=== PATIENT | male | born 1985 | race Caucasian/White ===

== ENCOUNTER 2017-06-03 12:26 | Emergency (ER) | payer OTHER ==
[2017-06-03 12:33] VITALS: BP 170/99
--- NOTE | 2017-06-03 12:53 | ER Document Report ---
ED Medical Screen (RME) - General Chief Complaint: Chest Pain Stated Complaint: CHEST PAIN Time Seen by Provider: 06/03/17 12:51 Notes: Patient states that he has had several months of intermittent chest pain. He states the current episode is been on and off for the last 2 days. It is in the central chest and radiates to the left chest on the left shoulder. He denies any previous history of heart disease. He states he does not have any family history of heart disease. He has not a smoker. He has had no vomiting or shortness of breath. TRAVEL OUTSIDE OF THE [place] IN LAST 30 DAYS: No - Related Data Allergies/Adverse Reactions: No Known Allergies Allergy (Unverified 06/03/17 12:33) Past Medical History Renal/ Medical History: Denies: Hx Peritoneal Dialysis Physical Exam - Vital signs Vitals: Temp Pulse Resp BP Pulse Ox 99.0 F 77 20 170/99 H 100 06/03/17 12:31 06/03/17 12:31 06/03/17 12:31 06/03/17 12:31 06/03/17 12:31 Course - Vital Signs Vital signs: Temp Pulse Resp BP Pulse Ox 99.0 F 77 20 170/99 H 100 06/03/17 12:31 06/03/17 12:31 06/03/17 12:31 06/03/17 12:31 06/03/17 12:31
[2017-06-03 13:09] LABS: ABSOLUTE BASOPHILS # (AUTO) 0.1 10^3/uL (0.0-0.2); ABSOLUTE EOSINOPHILS # (AUTO) 0.2 10^3/uL (0.0-0.6); ABSOLUTE LYMPHOCYTES (AUTO) 1.9 10^3/uL (0.5-4.7); ABSOLUTE MONOCYTES (AUTO) 0.9 10^3/uL (0.1-1.4); ABSOLUTE NEUT (AUTO) 9.4 10^3/uL (1.7-8.2); BASOPHILS % (AUTO) 0.5 % (0-2); EOSINOPHILS % (AUTO) 1.9 % (0-6); HEMATOCRIT 41.4 % (37.9-51.0); HEMOGLOBIN 14.5 g/dL (13.5-17.0); HGB HCT DIFFERENCE 2.1; MEAN CORPUSCULAR HEMOGLOBIN 28.3 pg (27.0-33.4); MEAN CORPUSCULAR HGB CONC 34.9 g/dL (32.0-36.0); MEAN CORPUSCULAR VOLUME 81 fl (80-97); MONOCYTES % (AUTO) 6.9 % (3-13); RED BLOOD COUNT 5.11 10^6/uL (4.35-5.55); RED CELL DISTRIBUTION WIDTH 14.2 % (11.5-14.0); SEGMENTED NEUTROPHILS % (AUTO) 75.7 % (42-78); WHITE BLOOD COUNT 12.4 10^3/uL (4.0-10.5)
[2017-06-03 13:33] LABS: ALANINE AMINOTRANSFERASE 45 U/L (21-72); ALBUMIN 4.2 g/dL (3.5-5.0); ALKALINE PHOSPHATASE 95 U/L (38-126); ANION GAP 11 (5-19); ASPARTATE AMINO TRANSFERASE 22 U/L (17-59); BILIRUBIN,DIRECT 0.3 mg/dL (0.0-0.4); BILIRUBIN,TOTAL 0.8 mg/dL (0.2-1.3); BLOOD UREA NITROGEN 12 mg/dL (7-20); CALCIUM 9.3 mg/dL (8.4-10.2); CARBON DIOXIDE 30 mmol/L (22-30); CHLORIDE 100 mmol/L (98-107); CREATININE RESULT 0.83 mg/dL (0.52-1.25); GLUCOSE 101 mg/dL (75-110); POTASSIUM 4.3 mmol/L (3.6-5.0); SODIUM 140.8 mmol/L (137-145); TOTAL PROTEIN 7.6 g/dL (6.3-8.2)
--- NOTE | 2017-06-03 13:41 | EKG REPORT ---
SEVERITY:- NORMAL ECG - SINUS RHYTHM : Confirmed by: Jose A Rucker MD 03-Jun-2017 13:41:06
[2017-06-03 14:25] LABS: ADD ON TESTING BLD IN LAB ACKNOWLEDGE
[2017-06-03 14:33] LABS: CREATINE KINASE 83 U/L (55-170)
--- NOTE | 2017-06-03 14:38 | ER Document Report ---
ED General - General TRAVEL OUTSIDE OF THE [place] IN LAST 30 DAYS: No - HPI Onset: Other - 6 months Associated symptoms: Other - see above <REBEKA MCKINNON - Last Filed: 06/03/17 14:35> <CRESCENCIO SANCHEZ - Last Filed: 06/03/17 17:35> - General Chief Complaint: Chest Pain Stated Complaint: CHEST PAIN Time Seen by Provider: 06/03/17 12:51 Notes: Patient is a 31 year old male who presents to the ED with complaints of substernal reflux and burping for the past 6 months. Patient has taken over the counter Zantac a couple months ago with some relief and still takes it intermittently. Patient has not done anything to modify his diet. Patient also complains of pain in his left scapular region. (REBEKA MCKINNON) - Related Data Allergies/Adverse Reactions: No Known Allergies Allergy (Unverified 06/03/17 12:33) Past Medical History - General Information source: Patient - Social History Smoking Status: Never Smoker Chew tobacco use (# tins/day): No Frequency of alcohol use: None Drug Abuse: None Family History: Reviewed & Not Pertinent Renal/ Medical History: Denies: Hx Peritoneal Dialysis GI Medical History: Reports: Hx Gastroesophageal Reflux Disease Surgical Hx: Negative - Immunizations Hx Diphtheria, Pertussis, Tetanus Vaccination: No <REBEKA MCKINNON - Last Filed: 06/03/17 14:35> Review of Systems - Review of Systems Constitutional: No symptoms reported EENT: No symptoms reported Cardiovascular: No symptoms reported Respiratory: No symptoms reported Gastrointestinal: See HPI, Other - substernal reflux and burping Genitourinary: No symptoms reported Male Genitourinary: No symptoms reported Musculoskeletal: See HPI, Other - left scapular region pain Skin: No symptoms reported Hematologic/Lymphatic: No symptoms reported Neurological/Psychological: No symptoms reported <REBEKA MCKINNON - Last Filed: 06/03/17 14:35> Physical Exam <REBEKA MCKINNON - Last Filed: 06/03/17 14:35> <CRESCENCIO SANCHEZ - Last Filed: 06/03/17 17:35> - Vital signs Vitals: Temp Pulse Resp BP Pulse Ox 99.0 F 77 20 170/99 H 100 06/03/17 12:31 06/03/17 12:31 06/03/17 12:31 06/03/17 12:31 06/03/17 12:31 - Notes Notes: GENERAL: Well-appearing, well nourished and in no acute distress. HEAD: Normocephalic, atraumatic. Eyes: Pupils equal, round, and reactive to light. Extraocular movements intact. ENT: Oral mucosa moist, tongue midline. NECK: Full range of motion. Supple without lymphadenopathy. LUNGS: Clear to auscultation bilaterally, no wheezes, rales, or rhonchi. No respiratory distress. HEART: Regular rate and rhythm. No murmurs, gallops, or rubs. ABDOMEN: Soft, non-tender. No guarding or rebound. Non-distended. Bowel sounds present in all 4 quadrants. EXTREMITIES: Normal ROM. No Edema. Left medial scapular muscle tender to palpation. NEUROLOGICAL: Alert and oriented x3. Normal speech. No focal neurological deficits. PSYCH: Normal affect, normal mood. SKIN: Warm, dry, normal turgor. No rashes or lesions noted. (REBEKA MCKINNON) Course - Laboratory Result Diagrams: 06/03/17 13:00 06/03/17 13:00 <REBEKA MCKINNON - Last Filed: 06/03/17 14:35> - Laboratory Result Diagrams: 06/03/17 13:00 06/03/17 13:00 - Diagnostic Test Radiology reviewed: Reports reviewed - Right upper quadrant ultrasound is read as grossly normal, see radiologist report. - EKG Interpretation by [facility] EKG shows normal: Sinus rhythm, Kirk, Intervals, QRS Complexes, ST-T Waves Rate: Normal - 76 Rhythm: NSR <CRESCENCIO SANCHEZ - Last Filed: 06/03/17 17:35> - Vital Signs Vital signs: Temp Pulse Resp BP Pulse Ox 99.0 F 77 20 170/99 H 100 06/03/17 12:31 06/03/17 12:31 06/03/17 12:06/03/17 12:31 06/03/17 12:31 - Laboratory Laboratory results interpreted by me: 06/03/17 13:00 WBC 12.4 H RDW 14.2 H Absolute Neutrophils 9.4 H Discharge <REBEKA MCKINNON - Last Filed: 07/31/17 14:35> <CRESCENCIO SANCHEZ - Last Filed: 06/03/17 17:35> - Discharge Clinical Impression: GERD (gastroesophageal reflux disease) Qualifiers: Esophagitis presence: esophagitis presence not specified Qualified Code(s): K21.9 - Gastro-esophageal reflux disease without esophagitis Condition: Stable Disposition: HOME, SELF-CARE Additional Instructions: Reflux Disease (GERD): Gastro-Esophageal Reflux Disease (GERD) is caused by stomach acid refluxing back up into the esophagus. The valve at the end of the esophagus may be weak. This is common in persons with a hiatal hernia. GERD symptoms can include indigestion, chest pain, heartburn, or food "sticking." Certain foods, alcohol, and aspirin can make GERD worse. Treatment depends on the severity. Usually, antacids or acid-suppressing medicines are used. When the esophagus is acutely inflamed, the physician will often prescribe membrane-protective drugs such as Carafate. Some patients benefit from medication such as Reglan that tightens the valve at the top of the stomach. Avoid those foods that bring on your symptoms. For many people, these foods are coffee, chocolate, onions, garlic, and carbonated drinks. Don't use alcohol, aspirin, caffeine, or tobacco. Don't eat late at night -- within 4 hours of bedtime. Don't over-eat. If necessary, elevate the head of your bed about 4 inches so that stomach acid will not roll up into your esophagus. Call the doctor if you develop severe chest pain, inability to swallow fluids, fever, or worsening symptoms. TAKE PRILOSEC OTC ONCE DAILY. TAKE ANTI-ACIDS BETWEEN MEALS AND AT BEDTIME. AVOID SPICY AND ACIDIC FOODS AND LIQUIDS. AVOID ALCOHOLIC BEVERAGES. AVOID EATING A FEW HOURS BEFORE GOING TO BED. ELEVATE THE HEAD OF THE BED. FOLLOWUP WITH A LOCAL PRIMARY CARE PROVIDER IF NOT IMPROVING. RETURN TO THE EMERGENCY ROOM IF ANY NEW OR WORSENING SYMPTOMS. Yesenia Attestation: 06/03/17 15:23 I personally performed the services described in the documentation, reviewed and edited the documentation which was dictated to the scribe in my presence, and it accurately records my words and actions. (CRESCENCIO SANCHEZ) Yesenia Documentation - Scribe Written by Yesenia:: yesenia Ruiz, 06/03/2017, 1438 acting as scribe for :: Arcelia <REBEKA MCKINNON - Last Filed: 06/03/17 14:35>
--- NOTE | 2017-06-03 17:22 | RADIOLOGY REPORT (SQ) ---
EXAM DESCRIPTION: U/S ABDOMEN LIMITED W/O DOP COMPLETED DATE/TIME: 06/03/2017 5:09 pm REASON FOR STUDY: GERD x 6 months COMPARISON: None. TECHNIQUE: Dynamic and static grayscale images acquired of the right upper quadrant and recorded on PACS. Additional selected color Doppler and spectral images recorded. LIMITATIONS: Study markedly limited due to acoustical interference from fat and from air in the jen l. FINDINGS: PANCREAS: Parts of the pancreas poorly seen secondary to acoustical interference from fat or from air in the bowel. LIVER: Echotexture is coarse with increased echogenicity consistent with fatty infiltration. No mass es. LIVER VASCULATURE: Normal directional flow of the main portal vein and hepatic veins. GALLBLADDER: No stones. Normal wall thickness. No pericholecystic fluid. ULTRASOUND-DETECTED PEDRAZA'S SIGN: Negative. INTRAHEPATIC DUCTS AND COMMON DUCT: Unable to visualize the extrahepatic bile ducts. No visualized i ntrahepatic biliary dilation. INFERIOR VENA CAVA: Normal flow. AORTA: No aneurysm. RIGHT KIDNEY: Normal size. Normal echogenicity. No solid or suspicious masses. No hydronephrosis. No calcifications. PERITONEAL CAVITY AND RIGHT PLEURAL SPACE: No ascites or effusions. OTHER: No other significant finding. IMPRESSION: LIMITED STUDY. FATTY LIVER. PANCREAS PARTIALLY OBSCURED. OTHERWISE NORMAL RIGHT UPPER Q UADRANT ULTRASOUND. TECHNICAL DOCUMENTATION: JOB ID: [id number] [employer]- All Rights Reserved
== END 2017-06-03 18:32 | disposition home or self-care (01) ==
LOC: ER 12:26
DX: K21.9 Gastro-esophageal reflux disease without esophagitis (principal); R07.9 Chest pain, unspecified; M25.512 Pain in left shoulder
CPT/HCPCS: 36415; 76705; 80053; 82550; 84484; 85025; 93005; 93010; 99285

== ENCOUNTER 2017-12-15 04:39 | Emergency (ER) | payer OTHER ==
[2017-12-15 04:45] VITALS: BP 150/95
--- NOTE | 2017-12-15 05:21 | ER Document Report ---
HPI - HPI Patient complains to provider of: shoulder and back pain Pain Level: 4 Context: Patient is a 32-year-old male comes emergency department for chief complaint of tightness, soreness, and pain in his right upper back/shoulder extending down to his mid back. 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 He denies any impact injury, difficulty breathing, numbness, or fever. He denies any daily medications or medical problems. He states he took over-the- counter anti-inflammatories and they did not help. Past Medical History - General Information source: Patient - Social History Smoking Status: Never Smoker Frequency of alcohol use: None Drug Abuse: None Lives with: Family Family History: Reviewed & Not Pertinent Renal/ Medical History: Denies: Hx Peritoneal Dialysis GI Medical History: Reports: Hx Gastroesophageal Reflux Disease Surgical Hx: Negative - Immunizations Hx Diphtheria, Pertussis, Tetanus Vaccination: No Vertical Provider Document - CONSTITUTIONAL General Appearance: Obese, Other - Patient has obvious discomfort with movement , otherwise he is well-appearing - INFECTION CONTROL TRAVEL OUTSIDE OF THE [place] IN LAST 30 DAYS: No - HEENT HEENT: Atraumatic, Normal ENT Exam, Normocephalic - NECK Neck: Normal Inspection - RESPIRATORY Respiratory: Breath Sounds Normal, No Respiratory Distress, Chest Non-Tender O2 Sat by Pulse Oximetry: 98 - CARDIOVASCULAR Cardiovascular: Regular Rate, Regular Rhythm - GI/ABDOMEN Gastrointestinal: Abdomen Soft, Abdomen Non-Tender - BACK Back: negative: Normal Inspection - Patient is very tender along the right scapula border and along the right upper paraspinal thoracic area, rigid muscles over these areas. No midline tenderness. Normal patient observer, sensation, no saddle anesthesia, normal distal neurovascular exam. Course - Re-evaluation Re-evalutation: On exam patient appears to have muscular strain and spasm with rigid muscles. Very low suspicion of pneumothorax or other intrathoracic abnormality, clear lungs, unremarkable vital signs. No neurological deficits or signs of infection suggesting concerning back abnormality either. Treating for muscle spasm, discussed recommendations, follow-up, return precautions, patient states understanding and agreement. - Vital Signs Vital signs: Temp Pulse Resp BP Pulse Ox 98.6 F 91 18 150/95 H 98 12/15/17 04:44 12/15/17 04:44 12/15/17 04:44 12/15/17 04:44 02/11/18 04:44 Discharge - Discharge Clinical Impression: Muscle strain Right-sided back pain Qualifiers: Back pain location: back pain in unspecified location Chronicity: acute Qualified Code(s): M54.9 - Dorsalgia, unspecified Condition: Stable Disposition: HOME, SELF-CARE Additional Instructions: Examination is consistent with muscle injury, strain, spasm. Take the Valium as prescribed for the first 1-2 days, afterwards began and take the Robaxin muscle relaxer if needed. Apply heat to the areas, do gentle stretches, avoid lifting or twisting, and rest. Follow-up with primary care. Return for any concerning or worsening symptoms including numbness, severe pain , fever, or any other concerning symptoms. Prescriptions: Diazepam [Valium 5 mg Tablet] 1 - 2 tab PO TID PRN #6 tablet PRN Reason: Methocarbamol [Robaxin 750 mg Tablet] 750 mg PO Q6 #20 tablet Forms: Return to Work
== END 2017-12-15 05:20 | disposition home or self-care (01) ==
LOC: ER 04:39
DX: T14.8XXA Other injury of unspecified body region, initial encounter (principal); X58.XXXA Exposure to other specified factors, initial encounter; M25.511 Pain in right shoulder; M54.89 Other dorsalgia; E66.9 Obesity, unspecified; Z68.43 Body mass index [BMI] 50.0-59.9, adult
CPT/HCPCS: 99283

== ENCOUNTER 2017-12-19 01:06 | Emergency (ER) | payer OTHER ==
--- NOTE | 2017-12-19 01:51 | ER Document Report ---
ED General - General Chief Complaint: Productive Cough Stated Complaint: COUGHING UP BLOOD Time Seen by Provider: 12/19/17 01:44 Mode of Arrival: Ambulatory Information source: Patient Notes: 32yo male c/o cough with bright red blood x 1 day. Denies clots of blood and sputum production. Patient reports that his chest feels warm to touch. Denies FIERRO , dizziness, SOB, and abd pain. Denies smoking, alcohol, and illicit drug use. TRAVEL OUTSIDE OF THE [place] IN LAST 30 DAYS: No - HPI Onset: Other - Patient was coughing for 1 week blood started today patient denies any DVT PE risk factors Onset/Duration: Sudden Quality of pain: Achy Severity: Mild Pain Level: 1 Associated symptoms: Other Exacerbated by: Coughing Relieved by: Denies Similar symptoms previously: No Recently seen / treated by doctor: No - Related Data Allergies/Adverse Reactions: No Known Allergies Allergy (Unverified 06/03/17 12:33) Past Medical History - Social History Smoking Status: Never Smoker Cigarette use (# per day): No Chew tobacco use (# tins/day): No Smoking Education Provided: No Frequency of alcohol use: None Drug Abuse: None Family History: Reviewed & Not Pertinent Patient has suicidal ideation: No Patient has homicidal ideation: No Renal/ Medical History: Denies: Hx Peritoneal Dialysis GI Medical History: Reports: Hx Gastroesophageal Reflux Disease - Immunizations Hx Diphtheria, Pertussis, Tetanus Vaccination: No Review of Systems - Review of Systems Notes: REVIEW OF SYSTEMS: CONSTITUTIONAL : Denies fever, chills, or sweats. Denies recent illness. EENT: Denies eye, ear, throat, or mouth pain or symptoms. Denies nasal or sinus congestion or discharge. Denies throat, tongue, or mouth swelling or difficulty swallowing. CARDIOVASCULAR: Denies chest pain. Denies palpitations or racing or irregular heart beat. Denies ankle edema. RESPIRATORY: Admits to cough specks of blood GASTROINTESTINAL: Denies abdominal pain or distention. Denies nausea, vomiting , or diarrhea. Denies blood in vomitus, stools, or per rectum. Denies black, tarry stools. Denies constipation. GENITOURINARY: Denies difficulty urinating, painful urination, burning, frequency, blood in urine, or discharge. MUSCULOSKELETAL: Denies back or neck pain or stiffness. Denies joint pain or swelling. SKIN: Denies rash, lesions or sores. HEMATOLOGIC : Denies easy bruising or bleeding. LYMPHATIC: Denies swollen, enlarged glands. NEUROLOGICAL: Denies confusion or altered mental status. Denies passing out or loss of consciousness. Denies dizziness or lightheadedness. Denies headache. Denies weakness or paralysis or loss of use of either side. Denies problems with gait or speech. Denies sensory loss, numbness, or tingling. Denies seizures. PSYCHIATRIC: Denies anxiety or stress. Denies depression, suicidal ideation, or homicidal ideation. ALL OTHER SYSTEMS REVIEWED AND NEGATIVE. Dictation was performed using [employer] voice recognition software PHYSICAL EXAMINATION: GENERAL: Obese male HEAD: Atraumatic, normocephalic. EYES: Pupils equal round and reactive to light, extraocular movements intact, sclera anicteric, conjunctiva are normal. ENT: Nares patent, oropharynx clear without exudates. Moist mucous membranes. NECK: Normal range of motion, supple without lymphadenopathy LUNGS: Breath sounds clear to auscultation bilaterally and equal. No wheezes rales or rhonchi. HEART: Tachycardic ABDOMEN: Soft, nontender, nondistended abdomen. No guarding, no rebound. No masses appreciated. Musculoskeletal: Normal range of motion, no pitting or edema. No cyanosis. NEUROLOGICAL: Cranial nerves grossly intact. Normal speech, normal gait. Normal sensory, motor exams PSYCH: Normal mood, normal affect. SKIN: Warm, Dry, normal turgor, no rashes or lesions noted. Physical Exam - Vital signs Vitals: Temp Pulse Resp BP Pulse Ox 98.2 F 102 H 20 169/94 H 96 12/19/17 01:11 12/19/17 01:11 12/19/17 01:11 12/19/17 01:11 12/19/17 01:11 Course - Re-evaluation Re-evalutation: 12/19/17 03:54 This is a 32-year-old male no previous DVT PE or risk factors for such who presents noted to be slightly tachycardic with complaints of coughing blood, d- dimer was elevated, CTA has been ordered 12/19/17 05:53 cta after delays ntes a left lower lobe pneumonia, will start patient on levaquin otherwise he is well appearing in no distress After performing a Medical Screening Examination, I estimate there is LOW risk for ACUTE CORONARY SYNDROME, PULMONARY EMBOLI, RESPIRATORY FAILURE, SEPSIS OR MENINGITIS, thus I consider the discharge disposition reasonable. I have reevaluated this patient multiple times and no significant life threatening changes are noted. The patient and I have discussed the diagnosis and risks, and we agree with discharging home with close follow-up. We also discussed returning to the Emergency Department immediately if new or worsening symptoms occur. We have discussed the symptoms which are most concerning (e.g., changing or worsening pain, trouble swallowing or breathing, neck stiffness, fever) that necessitate immediate return. - Vital Signs Vital signs: Temp Pulse Resp BP Pulse Ox 98.2 F 102 H 20 169/94 H 96 12/19/17 01:11 12/19/17 01:11 12/19/17 01:11 12/19/17 01:11 12/19/17 01:11 - Laboratory Result Diagrams: 12/19/17 02:25 12/19/17 02:25 Laboratory results interpreted by me: 12/19/17 12/19/17 12/19/17 02:25 02:25 02:25 WBC 11.0 H Hgb 12.2 L Hct 35.7 L D-Dimer 3.07 H Glucose 124 H Direct Bilirubin 0.5 H ALT 80 H - Diagnostic Test Radiology reviewed: Image reviewed, Reports reviewed Discharge - Discharge Clinical Impression: Left lower lobe pneumonia Qualifiers: Pneumonia type: due to unspecified organism Qualified Code(s): J18.1 - Lobar pneumonia, unspecified organism HTN (hypertension) Qualifiers: Hypertension type: essential hypertension Qualified Code(s): I10 - Essential ( primary) hypertension Condition: Stable Disposition: HOME, SELF-CARE Instructions: Pneumonia ([facility]) Additional Instructions: Follow up with your physician tomorrow for further care or return to the ED IMMEDIATELY if symptoms worsen or new concerns occur. If you cannot afford to follow up with your primary care physician a list of low cost clinics have been provided at the end of your discharge papers as well. Prescriptions: Levofloxacin [Levaquin 750 mg Tablet] 750 mg PO DAILY #4 tablet
--- NOTE | 2017-12-19 02:49 | RADIOLOGY REPORT (SQ) ---
EXAM DESCRIPTION: CHEST PA/LAT CLINICAL HISTORY: 32 years, Male, cough, blood tinged COMPARISON: None. NUMBER OF VIEWS: 2 LIMITATIONS: None. FINDINGS: Moderate lung volume. Clear parenchyma. Normal cardiac silhouette. Minimal anterior vertebral wedging at the thoracolumbar junction. IMPRESSION: Moderate lung volume.
[2017-12-19 03:28] LABS: ABSOLUTE BASOPHILS # (AUTO) 0.1 10^3/uL (0.0-0.2); ABSOLUTE EOSINOPHILS # (AUTO) 0.5 10^3/uL (0.0-0.6); ABSOLUTE LYMPHOCYTES (AUTO) 1.5 10^3/uL (0.5-4.7); ABSOLUTE MONOCYTES (AUTO) 0.7 10^3/uL (0.1-1.4); ABSOLUTE NEUT (AUTO) 8.1 10^3/uL (1.7-8.2); BASOPHILS % (AUTO) 0.5 % (0-2); EOSINOPHILS % (AUTO) 4.9 % (0-6); HEMATOCRIT 35.7 % (37.9-51.0); HEMOGLOBIN 12.2 g/dL (13.5-17.0); LYMPHOCYTES % (AUTO) 14.1 % (13-45); MEAN CORPUSCULAR HEMOGLOBIN 27.4 pg (27.0-33.4); MEAN CORPUSCULAR HGB CONC 34.1 g/dL (32.0-36.0); MEAN CORPUSCULAR VOLUME 80 fl (80-97); MONOCYTES % (AUTO) 6.6 % (3-13); PLATELET COUNT 344 10^3/uL (150-450); RED BLOOD COUNT 4.45 10^6/uL (4.35-5.55); RED CELL DISTRIBUTION WIDTH 13.5 % (11.5-14.0); SEGMENTED NEUTROPHILS % (AUTO) 73.9 % (42-78); TOTAL CELLS COUNTED % (AUTO) 100 %
[2017-12-19 03:34] LABS: ALANINE AMINOTRANSFERASE 80 U/L (21-72); ALBUMIN 3.5 g/dL (3.5-5.0); ALKALINE PHOSPHATASE 96 U/L (38-126); ANION GAP 11 (5-19); ASPARTATE AMINO TRANSFERASE 29 U/L (17-59); BILIRUBIN,DIRECT 0.5 mg/dL (0.0-0.4); BILIRUBIN,TOTAL 0.7 mg/dL (0.2-1.3); BLOOD UREA NITROGEN 10 mg/dL (7-20); CALCIUM 9.2 mg/dL (8.4-10.2); CARBON DIOXIDE 27 mmol/L (22-30); CHLORIDE 102 mmol/L (98-107); GLUCOSE 124 mg/dL (75-110); POTASSIUM 3.7 mmol/L (3.6-5.0); SODIUM 139.6 mmol/L (137-145); TOTAL PROTEIN 7.1 g/dL (6.3-8.2)
--- NOTE | 2017-12-19 05:52 | RADIOLOGY REPORT (SQ) ---
EXAM DESCRIPTION: CTA CHEST CLINICAL HISTORY: 32 years Male, coughing blood, _+ d dimer COMPARISON: CR, same day. TECHNIQUE: 200 cc Isovue IV contrast after injection. Coronal and sagittal reformat. This exam was performed according to our departmental dose-optimization program, which includes automated exposure control, adjustment of the mA and/or kV according to patient size and/or use of iterative reconstruction technique. Limitation: As below. FINDINGS: Small-moderate right basilar consolidate. Small right pleural effusion. No pulmonary embolus. No right ventricular strain. Suboptimal pulmonary arterial enhancement measures 160 Hounsfield units with reinjection somewhat decreasing sensitivity specificity. Inferior neck, axillae, mediastinum, airway, lymphatics, heart, vasculature, upper abdomen, and musculoskeleton appear otherwise unremarkable. IMPRESSION: Right lower lobar pneumonia. No pulmonary embolus; limitation.
[2017-12-19] MEDS ORDERED: LEVOFLOXACIN 750 MG TABLET PO ONE (05:53)
[2017-12-19 06:15] VITALS: BP 144/91
== END 2017-12-19 06:21 | disposition home or self-care (01) ==
LOC: ER 01:06
DX: J18.1 Lobar pneumonia, unspecified organism (principal); I10 Essential (primary) hypertension; R04.2 Hemoptysis; E66.9 Obesity, unspecified; Z68.43 Body mass index [BMI] 50.0-59.9, adult; R00.0 Tachycardia, unspecified; R79.1 Abnormal coagulation profile
CPT/HCPCS: 36415; 71046; 71275; 80053; 85025; 85379; 99284

== ENCOUNTER 2018-01-01 20:36 | Inpatient (IN) | payer OTHER ==
[2018-01-01] MEDS ORDERED: IPRATROPIUM/ALBUTEROL 0.5-2.5 MG/3 ML AMPUL NEB ONE (21:03)
--- NOTE | 2018-01-01 21:04 | ER Document Report ---
HPI - HPI Pain Level: 4 Notes: Patient is a 32-year-old male who presents to the ED complaining of intermittent episodes of shortness of breath and a dry nonproductive cough that has remained since his recent diagnosis of right lower lobe pneumonia about 2 weeks ago. Patient states that he does not feel as bad as he did when he was diagnosed with pneumonia, but states that symptoms are similar. Patient has been eating and drinking without difficulties. He is urinating normally and having normal bowel movements. Patient states that he completed his antibiotic , and states that he believes his symptoms improve thereafter, but have continued. He denies any drug allergies. Denies any prolonged immobilization, travel, hormone use, smoking, IV drug use, previous DVT/PE. Patient had a thorough workup at previous visit including a CTA of the chest which was unremarkable for blood clots. Patient also presented mildly tachycardic at that time as well. Denies any headache, fever, neck pain, URI, sore throat, chest pain, palpitations, syncope, abdominal pain, nausea/vomiting/diarrhea, urinary retention, dysuria, hematuria, or rash. - ROS Systems Reviewed and Negative: Yes All other systems reviewed and negative - CONSTITUTIONAL Constitutional: DENIES: Fever, Chills - EENT EENT: DENIES: Sore Throat, Ear Pain, Eye problems - CARDIOVASCULAR Cardiovascular: DENIES: Chest pain - RESPIRATORY Respiratory: REPORTS: Trouble Breathing - SOB with exertion, Coughing <MARIA L RODGERS - Last Filed: 01/02/18 01:56> Past Medical History - Social History Smoking Status: Never Smoker Chew tobacco use (# tins/day): No Frequency of alcohol use: Occasional Drug Abuse: None Family History: Reviewed & Not Pertinent Patient has suicidal ideation: No Patient has homicidal ideation: No Renal/ Medical History: Denies: Hx Peritoneal Dialysis GI Medical History: Reports: Hx Gastroesophageal Reflux Disease - Immunizations Hx Diphtheria, Pertussis, Tetanus Vaccination: No <MARIA L RODGERS - Last Filed: 01/02/18 01:56> Vertical Provider Document - CONSTITUTIONAL Agree With Documented VS: Yes Notes: PHYSICAL EXAMINATION: GENERAL: Well-appearing, well-nourished and in no acute distress. A&Ox4. Answers questions appropriately. Moves comfortably w/o notable distress HEAD: Atraumatic, normocephalic. EYES: Pupils equal round and reactive to light, extraocular movements intact, sclera anicteric, conjunctiva are normal. ENT: EAC clear b/l. TM's intact b/l without erythema, fluid, or perforation. Nares patent and with clear discharge. oropharynx no erythema without exudates. No tonsilar hypertrophy without erythema or exudate. No palatine shift. Uvula midline. No tongue protrusion. No drooling, hoarseness, or airway compromise. Moist mucous membranes. No sinus tenderness. NECK: Normal range of motion, supple without lymphadenopathy. No rigidity/ meningismus. LUNGS: Dec breath sounds RLL. No retractions. + shallow breaths HEART: Regular rate and rhythm without murmurs, rubs, gallops. ABDOMEN: Soft, nontender, nondistended abdomen. No guarding, no rebound. No masses appreciated. Normal bowel sounds present. No CVA tenderness bilaterally. Ext: Trace pitting edema b/l. Bandar neg b/l. NEUROLOGICAL: Normal speech, normal gait. Normal sensory, motor exams PSYCH: Normal mood, normal affect. SKIN: Warm, Dry, normal turgor, no rashes or lesions noted. - INFECTION CONTROL TRAVEL OUTSIDE OF THE [place] IN LAST 30 DAYS: No - RESPIRATORY O2 Sat by Pulse Oximetry: 94 <MARIA L RODGERS - Last Filed: 01/02/18 01:56> Course - Re-evaluation Re-evalutation: 01/01/18 21:44 CXR shows pleural effusion. Reviewed with Dr. Blankenship who recommended labs, ekg, and consideration of another CTA. Pt is in agreement with plan. 01/01/18 22:55 Cardiac Enzymes, EKG unremarkable for acute pathology. We will obtain a CTA at this time 01/02/18 00:22 O2 at rest 94% on RA with HR of 103, ambulation dropped it to 89% and HR of 120 , rest after ambulation 92% with HR of 108. Reviewed results with Dr. Blankenship who also contacted the radiologist. At this time, it appears as though this is a significant pneumonia. radiologist does not believe this to be an empyema nor PE at this time. Admit initiated. 01/02/18 01:[address] Richardson believes this will need a pulmonology consult and VATS procedure. Reviewed again with Dr. Blankenship who re-discussed with Dr. Richardson, transfer still recommended by hospitalist. I called [facility] and they are not accepting due to no land leveler. [facility] is not accepting due to high capacity for medical beds. [facility] states they can put him on a waitlist for up to 24 hours as they do not have anything immediately available. I called [facility] [place] who is not accepting medical patients due to capacity. [facility] has been contacted and no response. Pt has no new concerns or complaints. Antibiotics have already been started. Vitals are stable. 01/02/18 01:52 Pulmonology will be on in the morning. Discussed with Dr. Richardson again and reviewed that no tertiary care centers have beds available. I will place a consult for Dr. Polk who will be on in the morning. I have also ordered an US guided thoracentesis. Antibiotics have been started and cultures have been sent. Dr. Richardson accepted admission at this time due to no beds at tertiary clinics. Pt stable at time of admission. - Vital Signs Vital signs: Temp Pulse Resp BP Pulse Ox 98.0 F 115 H 21 H 140/90 H 94 01/01/18 20:42 01/01/18 20:43 01/01/18 20:42 01/01/18 20:42 01/01/18 20:42 - Laboratory Result Diagrams: 01/01/18 22:02 01/01/18 22:02 <MARIA L RODGERS - Last Filed: 01/02/18 01:56> - Vital Signs Vital signs: Temp Pulse Resp BP Pulse Ox 98.0 F 103 H 24 H 133/79 H 94 01/01/18 20:42 01/02/18 00:11 01/01/18 23:15 01/01/18 23:15 01/02/18 01:56 - Laboratory Result Diagrams: 01/01/18 22:02 01/01/18 22:02 Laboratory results interpreted by me: 01/01/18 01/01/18 22:02 22:02 WBC 15.3 H Hgb 12.8 L MCH 26.6 L Lymphocytes % 10.9 L Absolute Neutrophils 11.6 H Absolute Eosinophils 0.7 H Glucose 115 H <AMERICA BLANKENSHIP - Last Filed: 01/02/18 02:19> Discharge - Discharge Admitting Provider: Hospitalist - Dr. Richardson Unit Admitted: IMCU <MARIA L RODGERS - Last Filed: 01/02/18 01:56> - Discharge Admitting Provider: Hospitalist Unit Admitted: IMCU <AMERICA BLANKENSHIP - Last Filed: 01/02/18 02:19> - Discharge Clinical Impression: Pleural effusion Right lower lobe pneumonia Qualifiers: Pneumonia type: due to unspecified organism Qualified Code(s): J18.1 - Lobar pneumonia, unspecified organism Condition: Stable Disposition: ADMITTED INPATIENT Critical Care Note - Critical Care Note Total time excluding time spent on procedures (mins): 60 - Evaluation and management of tachycardia, hypoxic, multiple re-evaluations, attempts to transfer, multiple re-evaluations of patient, coordination of admission, counseling of patient, initiation of treatment <AMERICA BLANKENSHIP - Last Filed: 01/02/18 02:19>
--- NOTE | 2018-01-01 21:14 | RADIOLOGY REPORT (SQ) ---
EXAM DESCRIPTION: CHEST PA/LAT COMPLETED DATE/TIME: 01/01/2018 9:06 pm REASON FOR STUDY: cough COMPARISON: 12/19/2017. EXAM PARAMETERS: NUMBER OF VIEWS: two views TECHNIQUE: Digital Frontal and Lateral radiographic views of the chest acquired. RADIATION DOSE: NA LIMITATIONS: none FINDINGS: LUNGS AND PLEURA: Right pleural effusion with hazy appearance of the right lower lobe. Le ft lung relatively clear. MEDIASTINUM AND HILAR STRUCTURES: No masses or contour abnormalities. HEART AND VASCULAR STRUCTURES: Heart normal size. No evidence for failure. BONES: No acute findings. HARDWARE: None in the chest. OTHER: No other significant finding. IMPRESSION: RIGHT PLEURAL EFFUSION WITH RIGHT LOWER LOBE ATELECTASIS. TECHNICAL DOCUMENTATION: JOB ID: [id number] [employer]- All Rights Reserved Reading location - IP/workstation name: [email or web address]
[2018-01-01 22:48] LABS: CREATINE KINASE MB 0.53 ng/mL (<4.55); NT PRO BNP 24 pg/mL (<125)
[2018-01-01 22:49] LABS: TROPONIN I < 0.012 ng/mL
--- NOTE | 2018-01-02 00:04 | RADIOLOGY REPORT (SQ) ---
EXAM DESCRIPTION: CTA CHEST CLINICAL HISTORY: 32 years Male, effusion RLL, SOB COMPARISON: 12/19/2017. CR, same day. TECHNIQUE: 99 mL Isovue-370 No contrast. Coronal and sagittal reformat. This exam was performed according to our departmental dose-optimization program, which includes automated exposure control, adjustment of the mA and/or kV according to patient size and/or use of iterative reconstruction technique. Findings: Moderate partially loculated right pleural effusion, small strandiness and consolidation of the peripheral right lower lobe and right middle lobe. There is inadequate enhancement of the pulmonary arterial system measuring 61 HU significantly decreasing sensitivity of this exam. Consider repeat, alternative, or surveillance investigation as clinically warranted. CTA appearance of the thoracic aorta is normal. Inferior neck, axillae, mediastinum, lungs, airway, lymphatics, heart, upper abdomen, and musculoskeleton appear otherwise unremarkable. Impression 1. Incomplete exam for pulmonary embolus.There is inadequate enhancement of the pulmonary arterial system. Consider repeat, alternative, or surveillance investigation as clinically warranted. 2. Increased moderate loculated right pleural effusion and small residual right basilar pneumonia/atelectasis.
[2018-01-02 00:36] LABS: ABSOLUTE BASOPHILS # (AUTO) 0.1 10^3/uL (0.0-0.2); ABSOLUTE EOSINOPHILS # (AUTO) 0.7 10^3/uL (0.0-0.6); ABSOLUTE LYMPHOCYTES (AUTO) 1.7 10^3/uL (0.5-4.7); ABSOLUTE MONOCYTES (AUTO) 1.2 10^3/uL (0.1-1.4); ABSOLUTE NEUT (AUTO) 11.6 10^3/uL (1.7-8.2); BASOPHILS % (AUTO) 0.4 % (0-2); EOSINOPHILS % (AUTO) 4.3 % (0-6); HEMATOCRIT 38.5 % (37.9-51.0); HEMOGLOBIN 12.8 g/dL (13.5-17.0); LYMPHOCYTES % (AUTO) 10.9 % (13-45); MEAN CORPUSCULAR HEMOGLOBIN 26.6 pg (27.0-33.4); MEAN CORPUSCULAR HGB CONC 33.2 g/dL (32.0-36.0); MEAN CORPUSCULAR VOLUME 80 fl (80-97); MONOCYTES % (AUTO) 8.2 % (3-13); PLATELET COUNT 368 10^3/uL (150-450); SEGMENTED NEUTROPHILS % (AUTO) 76.2 % (42-78); TOTAL CELLS COUNTED % (AUTO) 100 %; WHITE BLOOD COUNT 15.3 10^3/uL (4.0-10.5)
[2018-01-02] MEDS ORDERED: LEVOFLOXACIN 500 MG/D5W RTU 500 MG/100 ML RTUPB IV ONE (00:37)
[2018-01-02] MEDS ORDERED: VANCOMYCIN HCL INJ 1000 MG VIAL IV ONE (00:37)
[2018-01-02] MEDS ORDERED: CEFEPIME 2 GM/D5W RTU 2 GM/50 ML RTUPB IV ONE (00:37)
[2018-01-02 01:10] LABS: ALANINE AMINOTRANSFERASE 39 U/L (21-72); ALBUMIN 3.9 g/dL (3.5-5.0); ALKALINE PHOSPHATASE 97 U/L (38-126); ANION GAP 14 (5-19); ASPARTATE AMINO TRANSFERASE 20 U/L (17-59); BILIRUBIN,DIRECT 0.3 mg/dL (0.0-0.4); BILIRUBIN,TOTAL 1.1 mg/dL (0.2-1.3); BLOOD UREA NITROGEN 12 mg/dL (7-20); CALCIUM 9.6 mg/dL (8.4-10.2); CARBON DIOXIDE 26 mmol/L (22-30); CHLORIDE 101 mmol/L (98-107); GLUCOSE 115 mg/dL (75-110); POTASSIUM 4.2 mmol/L (3.6-5.0); SODIUM 141.1 mmol/L (137-145); TOTAL PROTEIN 7.1 g/dL (6.3-8.2)
[2018-01-02] MEDS ORDERED: KETOROLAC TROMETHAMINE INJ/PF 30 MG/1 ML SDV IV ONE (01:41)
[2018-01-02] MEDS ORDERED: VANCOMYCIN HCL 0 MG in DEXTROSE 5%-WATER 250 ML IV NR (02:00)
[2018-01-02] MEDS ORDERED: VANCOMYCIN HCL INJ 1000 MG VIAL IV PRN ×2 (02:32→03:11)
[2018-01-02] MEDS ORDERED: VANCOMYCIN HCL 2,500 MG in DEXTROSE 5%-WATER 500 ML IV ONE (03:00)
[2018-01-02] MEDS ORDERED: HYDRALAZINE HCL INJ/PF 20 MG/1 ML SDV IV PRN (04:43)
--- NOTE | 2018-01-02 04:49 | PDOC H&P ---
History of Present Illness Admission Date/PCP: 01/02/18 02:02 Patient complains of: Right-sided chest pain and shortness of breath History of Present Illness: HALIMA DERAS is a 32 year old male with a past medical history of obesity and pneumonia 2 weeks ago treated with 5 days of levofloxacin with initial response however has developed shortness of breath and chest pain prompting reevaluation emergency room. He is found to have a large loculated right-sided pleural effusion with associated atelectasis. He started on empiric antibiotics of vancomycin, levofloxacin and cefepime and referred to the hospitalist for admission. Patient denies previous pulmonary history and otherwise has felt well. Past Medical History Medical History: None Endocrine Medical History: Reports: Obesity GI Medical History: Reports: Gastroesophageal Reflux Disease Social History Information Source: Patient Smoking Status: Never Smoker Frequency of Alcohol Use: None Drugs: None - Advance Directive Resuscitation Status: Full Code Family History Family History: Hypertension Parental Family History Reviewed: Yes Children Family History Reviewed: Yes Sibling(s) Family History Reviewed.: Yes Medication/Allergy Home Medications: Hydrocodone Bit/Acetaminophen [Vicodin 5-500 mg Tablet] 1 - 2 tab PO Q4 #15 tablet 05/12/12 Ibuprofen [Motrin 800 Mg Tablet] 800 mg PO Q6 PRN #20 tablet 05/12/12 Penicillin V Potassium [Penicillin Vk 500 mg Tablet] 500 mg PO BID #20 tablet Diazepam [Valium 5 mg Tablet] 1 - 2 tab PO TID PRN #6 tablet 12/15/17 Methocarbamol [Robaxin 750 mg Tablet] 750 mg PO Q6 #20 tablet 12/15/17 Levofloxacin [Levaquin 750 mg Tablet] 750 mg PO DAILY #4 tablet 12/19/17 Allergies/Adverse Reactions: No Known Allergies Allergy (Unverified 06/03/17 12:33) Review of Systems Constitutional: PRESENT: fatigue, fever(s) Eyes: ABSENT: visual disturbances Ears: ABSENT: hearing changes Cardiovascular: ABSENT: chest pain, dyspnea on exertion, edema, orthropnea, palpitations Respiratory: PRESENT: as per HPI, cough, dyspnea. ABSENT: sputum Gastrointestinal: ABSENT: abdominal pain, constipation, diarrhea, hematemesis, hematochezia, nausea, vomiting Genitourinary: ABSENT: dysuria, hematuria Musculoskeletal: ABSENT: joint swelling Integumentary: ABSENT: rash, wounds Neurological: ABSENT: abnormal gait, abnormal speech, confusion, dizziness, focal weakness, syncope Psychiatric: ABSENT: anxiety, depression, homidical ideation, suicidal ideation Endocrine: ABSENT: cold intolerance, heat intolerance, polydipsia, polyuria Hematologic/Lymphatic: ABSENT: easy bleeding, easy bruising Physical Exam Vital Signs: Temp Pulse Resp BP Pulse Ox 98.0 F 103 H 14 124/78 91 L 01/01/18 20:42 01/02/18 00:11 01/02/18 03:01 01/02/18 03:01 01/02/18 03:01 General appearance: PRESENT: cooperative, mild distress, morbidly obese Head exam: PRESENT: atraumatic, normocephalic Eye exam: PRESENT: conjunctiva pink, EOMI, PERRLA. ABSENT: scleral icterus Ear exam: PRESENT: normal external ear exam Mouth exam: PRESENT: moist, tongue midline Neck exam: ABSENT: carotid bruit, JVD, lymphadenopathy, thyromegaly Respiratory exam: PRESENT: accessory muscle use, crackles, decreased breath sounds, retraction, rhonchi, tachypnea Cardiovascular exam: PRESENT: RRR. ABSENT: diastolic murmur, rubs, systolic murmur Pulses: PRESENT: normal dorsalis pedis pul Vascular exam: PRESENT: normal capillary refill GI/Abdominal exam: PRESENT: normal bowel sounds, soft. ABSENT: distended, guarding, mass, organolmegaly, rebound, tenderness Rectal exam: PRESENT: deferred Extremities exam: PRESENT: full ROM. ABSENT: calf tenderness, clubbing, pedal edema Neurological exam: PRESENT: alert, awake, oriented to person, oriented to place , oriented to time, oriented to situation, CN II-XII grossly intact. ABSENT: motor sensory deficit Psychiatric exam: PRESENT: agitated Skin exam: PRESENT: dry, intact, warm. ABSENT: cyanosis, rash Results Impressions: Chest X-Ray 01/01/18 20:51 IMPRESSION: RIGHT PLEURAL EFFUSION WITH RIGHT LOWER LOBE ATELECTASIS. Assessment & Plan - Diagnosis (1) Right lower lobe pneumonia Qualifiers: Pneumonia type: due to unspecified organism Qualified Code(s): J18.1 - Lobar pneumonia, unspecified organism Is this a current diagnosis for this admission?: Yes Plan: Telemetry admission, pneumonia care set, vancomycin, cefepime and Levaquin ordered pulmonology and interventional radiology consult given complication of loculated effusion requiring thoracentesis. (2) Pleural effusion Is this a current diagnosis for this admission?: Yes Plan: Follow-up thoracentesis fluid analysis, culture and reimaging. - Time Time Spent: 30 to 50 Minutes - Inpatient Certification Medical Necessity: Need Close Monitoring Due to Risk of Patient Decompensation
[2018-01-02] MEDS: HEPARIN SOD (PORCINE) 5,000 UNIT/ML 1 ML SYRINGE SUBCUT SCH ×3 (06:02→21:14)
[2018-01-02] MEDS ORDERED: DEXTROSE 50%-WATER 25 GM/50 ML DISP.SYRIN IV PRN ×2 (06:29)
[2018-01-02] MEDS ORDERED: GLUCAGON,HUMAN RECOMB 1 MG INJ SUBCUT PRN (06:29)
[2018-01-02] MEDS ORDERED: DEXTROSE 40% GEL 15 GM TUBE PO PRN ×2 (06:29)
[2018-01-02 06:55] LABS: INTERNATIONAL RATION (INR) 1.06; PROTHROMBIN TIME 14.5 SEC (11.4-15.4)
[2018-01-02 06:56] LABS: PARTIAL THROMBOPLASTIN TIME 35.4 SEC (23.5-35.8)
[2018-01-02] MEDS: KETOROLAC TROMETHAMINE INJ/PF 30 MG/1 ML SDV IV PRN ×3 (08:49→23:39)
--- NOTE | 2018-01-02 09:37 | EKG REPORT ---
SEVERITY:- BORDERLINE ECG - SINUS TACHYCARDIA BORDERLINE T ABNORMALITIES, INFERIOR LEADS : Confirmed by: Jose A Rucker MD 02-Jan-2018 09:37:15
[2018-01-02] MEDS: VANCOMYCIN HCL 2,000 MG in DEXTROSE 5%-WATER 500 ML IV SCH ×2 (10:00→18:22)
[2018-01-02] MEDS ORDERED: LIDOCAINE 1% INJ-PF (10 MG/ML) 30 ML SDV ONE (10:24)
--- NOTE | 2018-01-02 12:18 | RADIOLOGY REPORT (SQ) ---
EXAM DESCRIPTION: U/S THORACENTESIS W/CHEST TUBE COMPLETED DATE/TIME: 01/02/2018 11:17 am REASON FOR STUDY: RLL effusion COMPARISON: None. RADIATION DOSE: None LIMITATIONS: None. PROCEDURE: Procedure, risks, benefit, and alternative explained to patient who then gave written con sent. The right chest wall was marked using ultrasound guidance. A time-out was called for correct marking verification. Chest prepped and draped using sterile technique. Local anesthesia achieved us ing 10 ml of 1% lidocaine injection. A pigtail catheter was introduced into the right pleural space. Fluid was aspirated. No immediate complications noted. Images acquired during the procedure were stored on PACS. FINDINGS: ENTRY SITE: Right chest wall posteriorly FLUID VOLUME: 50 mL FLUID ANALYSIS: Bloody OTHER: None IMPRESSION: SUCCESSFUL right chest tube placement USING ultrasound GUIDANCE. COMMENT: Patient medication list reviewed: Yes Quality ID #[id number]: Final reports for procedures using fluoroscopy that document radiation exposure latha adelina, or exposure time and number of fluorographic images (if radiation exposure indices are not avail able) TECHNICAL DOCUMENTATION: JOB ID: [id number] [employer]- All Rights Reserved Reading location - IP/workstation name: [email or web address]
[2018-01-02 12:20] LABS: FLUID APPEARANCE TURBID; FLUID COLOR RED; FLUID TYPE PLEURAL; FLUID VISCOSITY LIQUID
--- NOTE | 2018-01-02 12:53 | RADIOLOGY REPORT (SQ) ---
EXAM DESCRIPTION: CHEST SINGLE VIEW COMPLETED DATE/TIME: 01/02/2018 11:11 am REASON FOR STUDY: S/P RT CHEST TUBE PLACEMENT COMPARISON: 01/01/2018 EXAM PARAMETERS: NUMBER OF VIEWS: One view. TECHNIQUE: Single frontal radiographic view of the chest acquired. RADIATION DOSE: NA LIMITATIONS: None. FINDINGS: LUNGS AND PLEURA: There is increased density in the right hemithorax consistent with a rig ht pleural effusion and associated atelectasis or infiltrate. No pneumothorax is seen status post pl acement of a pleural drainage catheter. The left lung remains clear and well expanded. MEDIASTINUM AND HILAR STRUCTURES: No masses. Contour normal. HEART AND VASCULAR STRUCTURES: Cardiac silhouette appears unchanged. BONES: No acute findings. HARDWARE: Pleural drainage catheter is now identified overlying the right lower hemithorax OTHER: No other significant finding. IMPRESSION: No evidence for pneumothorax status post placement of a pleural drainage catheter on the right. There is increased density in the right hemithorax consistent with a right pleural effusion and associated atelectasis or infiltrate. Other findings as noted above TECHNICAL DOCUMENTATION: JOB ID: [id number] 2009 [facility]- All Rights Reserved Reading location - IP/workstation name: [email or web address]
--- NOTE | 2018-01-02 14:06 | RADIOLOGY REPORT (SQ) ---
EXAM DESCRIPTION: CHEST SINGLE VIEW COMPLETED DATE/TIME: 01/02/2018 1:45 pm REASON FOR STUDY: 2 HOURS S/P RT CHEST TUBE PLACEMENT COMPARISON: 01/02/2018 EXAM PARAMETERS: NUMBER OF VIEWS: One view. TECHNIQUE: Single frontal radiographic view of the chest acquired. RADIATION DOSE: NA LIMITATIONS: None. FINDINGS: LUNGS AND PLEURA: Pleural-parenchymal changes are again identified in the right hemithorax . No pneumothorax is seen. The left lung remains clear and well expanded. MEDIASTINUM AND HILAR STRUCTURES: No masses. Contour normal. HEART AND VASCULAR STRUCTURES: Heart normal in size. Normal vasculature. BONES: No acute findings. HARDWARE: Pleural drainage catheter is again identified projected in the right lower hemithorax. OTHER: No other significant finding. IMPRESSION: No evidence for pneumothorax post chest tube insertion. Other findings as noted above TECHNICAL DOCUMENTATION: JOB ID: [id number] [employer]- All Rights Reserved Reading location - IP/workstation name: [email or web address]
[2018-01-02] MEDS: OXYCODONE HCL IR 5 MG TABLET PO PRN ×2 (14:16→21:55)
--- NOTE | 2018-01-02 16:28 | Progress Note ---
Provider Note Provider Note: Patient admitted early AM for worsening PNA and right sided loculated pleural effusion. IR placed right sided chest tube that has been draining serosangeous pleural fluid. Pleural fluid analysis consistent with exudative fluid, likely due to PNA. Continue broad spectrum antibiotics. Pain medications given for PNR pain control. CXR ordered for the AM to assess effusion. If improved, will continue medical management. If not improved, will consult pulmonology. Will also consider transfer to tertiary care center for further management. Discussed with patient. Dallas Hale DO MPH Hospitalist
[2018-01-02] MEDS: ACETAMINOPHEN 325 MG TABLET PO PRN (17:29)
[2018-01-02] MEDS ORDERED: PIPERACILLIN/TAZOBACTAM 3.375 GM VIAL IV SCH (19:15)
[2018-01-02] MEDS: PIPERACILLIN SODIUM/TAZOBACTAM 3.375 GM in NORMAL SALINE 100 ML IV SCH (20:47)
[2018-01-03] MEDS: VANCOMYCIN HCL 2,000 MG in DEXTROSE 5%-WATER 500 ML IV SCH ×2 (01:59→09:23)
[2018-01-03] MEDS: PIPERACILLIN SODIUM/TAZOBACTAM 3.375 GM in NORMAL SALINE 100 ML IV SCH ×4 (03:45→20:06)
[2018-01-03] MEDS: OXYCODONE HCL IR 5 MG TABLET PO PRN ×2 (04:33→17:31)
[2018-01-03 04:42] LABS: ABSOLUTE BASOPHILS # (AUTO) 0.1 10^3/uL (0.0-0.2); ABSOLUTE EOSINOPHILS # (AUTO) 0.4 10^3/uL (0.0-0.6); ABSOLUTE MONOCYTES (AUTO) 1.6 10^3/uL (0.1-1.4); ABSOLUTE NEUT (AUTO) 13.3 10^3/uL (1.7-8.2); BASOPHILS % (AUTO) 0.4 % (0-2); EOSINOPHILS % (AUTO) 2.7 % (0-6); HEMOGLOBIN 11.5 g/dL (13.5-17.0); LYMPHOCYTES % (AUTO) 6.2 % (13-45); MEAN CORPUSCULAR HEMOGLOBIN 26.9 pg (27.0-33.4); MEAN CORPUSCULAR HGB CONC 33.8 g/dL (32.0-36.0); MEAN CORPUSCULAR VOLUME 80 fl (80-97); MONOCYTES % (AUTO) 9.8 % (3-13); PLATELET COUNT 285 10^3/uL (150-450); RED BLOOD COUNT 4.27 10^6/uL (4.35-5.55); RED CELL DISTRIBUTION WIDTH 14.2 % (11.5-14.0); SEGMENTED NEUTROPHILS % (AUTO) 80.9 % (42-78); TOTAL CELLS COUNTED % (AUTO) 100 %; WHITE BLOOD COUNT 16.5 10^3/uL (4.0-10.5)
[2018-01-03 05:12] LABS: ANION GAP 10 (5-19); BLOOD UREA NITROGEN 12 mg/dL (7-20); CALCIUM 8.9 mg/dL (8.4-10.2); CARBON DIOXIDE 27 mmol/L (22-30); CHLORIDE 98 mmol/L (98-107); GLUCOSE 178 mg/dL (75-110); POTASSIUM 4.4 mmol/L (3.6-5.0); SODIUM 135.1 mmol/L (137-145)
[2018-01-03] MEDS: HEPARIN SOD (PORCINE) 5,000 UNIT/ML 1 ML SYRINGE SUBCUT SCH ×3 (05:47→21:06)
[2018-01-03] MEDS: KETOROLAC TROMETHAMINE INJ/PF 30 MG/1 ML SDV IV PRN ×2 (07:46→14:13)
--- NOTE | 2018-01-03 08:49 | RADIOLOGY REPORT (SQ) ---
EXAM DESCRIPTION: CHEST PA/LAT COMPLETED DATE/TIME: 01/03/2018 8:04 am REASON FOR STUDY: evaluated right sided effusion s/p chest tube COMPARISON: Portable chest 01/02/2018. CTA chest 01/01/2018 EXAM PARAMETERS: NUMBER OF VIEWS: two views TECHNIQUE: Digital Frontal and Lateral radiographic views of the chest acquired. RADIATION DOSE: NA LIMITATIONS: none FINDINGS: LUNGS AND PLEURA: There is evidence of a large loculated right pleural effusion with assoc iated infiltrate/ atelectasis right lung. Pigtail catheter overlying right lung base. Since previou s study there is no significant interval change. MEDIASTINUM AND HILAR STRUCTURES: No masses or contour abnormalities. HEART AND VASCULAR STRUCTURES: The heart is normal with normal pulmonary vasculature. BONES: No acute findings. IMPRESSION: Persistent infiltrate or atelectasis in right mid and lower lung field with loculated ri ght pleural effusion. TECHNICAL DOCUMENTATION: JOB ID: [id number] [employer]- All Rights Reserved Reading location - IP/workstation name: [email or web address]
[2018-01-03 10:24] LABS: VANCOMYCIN,TROUGH 21.4 ug/mL (5.0-20.0)
--- NOTE | 2018-01-03 15:48 | PDOC TRANSFER SUMMARY ---
General Admission Date/PCP: 01/02/18 02:02 Admission Date: 01/01/18 Transfer Date: 01/03/18 Accepting Facility: [facility] Accepting Physician: Dr. Chand Resuscitation Status: Full Code - Transfer Diagnosis (1) Pleural effusion Is this a current diagnosis for this admission?: Yes Diagnosis Summary: Diagnosed 2 weeks ago with PNA and treated with 5 days of levofloxacin. Patient had an initial response however has developed shortness of breath and chest pain prompting reevaluation emergency room on 01/02/18. Xray in ER revealed large loculated right-sided pleural effusion with associated atelectasis. He was started on empiric antibiotics of vancomycin, levofloxacin and cefepime and referred to the hospitalist for admission. Chest tube was placed by IR on 01/02 which drained around 190cc of sanginous fluid. Pleural studies consistent with exudative effusions (Fluid LDH 355/Serum LDH 444, Pleural WBC 2838, Pleural TP 5.7/Total TP 7.1. Blood cultures NGTD. On day of transfer patient feeling much better. On RA and HDS. Ambulatory. Case discussed with Dr. Cobos (Pulmonology) who recommended transfer to [facility] for CT surgery evaluation for lytic therapy or VATS. Discussed with Dr. Adam Miller (CT surgery at [facility]) who was willing to evaluation patient if could be admitted to medicine service. Plan - Transfer to [facility] - continue broad spectrum abx - Will keep chest tube in for now - C/s CT surgery for evaluation for lytic therapy - Patient and his agreeable with plan (2) Right lower lobe pneumonia Is this a current diagnosis for this admission?: Yes Diagnosis Summary: Per above (3) Morbid obesity with BMI of 50.0-59.9, adult Is this a current diagnosis for this admission?: Yes Diagnosis Summary: Encouraged weight loss and exercise. - Transfer Medications Home Medications: No Home Medications 01/02/18 Transfer Medications: Current Medications Acetaminophen (Tylenol 325 Mg Tablet) 650 mg PO Q4HP PRN PRN Reason: pain or temp greater than 101F Stop: 02/01/18 01:54 Last Admin: 01/02/18 17:29 Dose: 650 mg Dextrose (Dextrose Inj 50% Syringe (25 Gm/50 Ml)) 12.5 gm IV PRN PRN; Protocol PRN Reason: FOR BG 50-69 IN ALERT PATIENT Stop: 02/01/18 06:28 Dextrose (Dextrose Inj 50% Syringe (25 Gm/50 Ml)) 25 gm IV PRN PRN; Protocol PRN Reason: See Label Comments Stop: 02/01/18 06:28 Glucagon (Glucagen Inj 1 Mg Vial) 1 mg SUBCUT PRN PRN; Protocol PRN Reason: Evaluate for BG < 70 Stop: 02/01/18 06:28 Glucose (Glutose 40% Gel 15 Gm Tube) 15 gm PO PRN PRN; Protocol PRN Reason: For BG 50-69 in Alert Patient Stop: 02/01/18 06:28 Glucose (Glutose 40% Gel 15 Gm Tube) 30 gm PO PRN PRN; Protocol PRN Reason: FOR BG < 50 IN ALERT PATIENT Stop: 02/01/18 06:28 Heparin Sodium (Porcine) (Heparin Inj 5,000 Units/Ml 1 Ml Syringe) 5,000 unit SUBCUT Q8 DRE Stop: 02/01/18 05:59 Last Admin: 01/03/18 13:22 Dose: 5,000 unit Hydralazine HCl (Apresoline Inj/Pf 20 Mg/1 Ml Sdv) 10 mg IV Q6HP PRN PRN Reason: Sbp>160 Stop: 02/01/18 04:42 Levofloxacin/Dextrose (Levaquin Rtu 750 Mg/D5w 150 Ml Premix) 750 mg in 150 mls @ 100 mls/hr IV QHS DRE Stop: 01/10/18 21:59 Piperacillin Sod/Tazobactam (Sod 3.375 gm/ Sodium Chloride) 100 mls @ 200 mls/ hr IV Q6A DRE Stop: 01/09/18 20:59 Last Admin: 01/03/18 15:33 Dose: 3.375 gm Vancomycin HCl 2,000 mg/ (Sodium Chloride) 500 mls @ 250 mls/hr IV Q12 DRE Stop: 01/09/18 09:59 Ketorolac Tromethamine (Toradol Inj/Pf 30 Mg/1 Ml Sdv) 15 mg IV Q6HP PRN PRN Reason: PAIN Stop: 01/07/18 04:42 Last Admin: 01/03/18 14:13 Dose: 15 mg Oxycodone HCl (Oxy-Ir 5 Mg Tablet) 5 mg PO Q6HP PRN Stop: 01/09/18 11:18 Last Admin: 01/03/18 04:33 Dose: 5 mg Sodium Chloride (Saline Flush 2.5 Ml Monoject Prefil Syrin) 2.5 ml IV Q8 DRE Stop: 02/01/18 05:59 Last Admin: 01/03/18 13:22 Dose: 2.5 ml - Allergies Allergies/Adverse Reactions: No Known Allergies Allergy (Unverified 06/03/17 12:33) Hospital Course Hospital Course: Per above. Physical Exam Vital Signs: Temp Pulse Resp BP Pulse Ox 98.6 F 107 H 18 149/82 H 93 01/03/18 11:20 01/03/18 14:00 01/03/18 11:20 01/03/18 11:20 01/03/18 11:20 Intake & Output 01/02/18 01/03/18 01/04/18 06:59 06:59 06:59 Intake Total 250 1200 1260 Output Total 1050 Balance 326 012 4449 Weight 180.1 kg 179.8 kg Results Laboratory Results: 01/03/18 04:05 01/03/18 04:05 01/02/18 01/02/18 01/03/18 10:53 10:53 04:05 WBC 16.5 H RBC 4.27 L Hgb 11.5 L Hct 34.0 L MCV 80 MCH 26.9 L MCHC 33.8 RDW 14.2 H Plt Count 285 Seg Neutrophils % 80.9 H Lymphocytes % 6.2 L Monocytes % 9.8 Eosinophils % 2.7 Basophils % 0.4 Absolute Neutrophils 13.3 H Absolute Lymphocytes 1.0 Absolute Monocytes 1.6 H Absolute Eosinophils 0.4 Absolute Basophils 0.1 Sodium Potassium Chloride Carbon Dioxide Anion Gap BUN Creatinine Est GFR ( Amer) Est GFR (Non-Af Amer) Glucose Calcium Fluid Total Protein 5.7 Fluid LDH 355 01/03/18 04:05 WBC RBC Hgb Hct MCV MCH MCHC RDW Plt Count Seg Neutrophils % Lymphocytes % Monocytes % Eosinophils % Basophils % Absolute Neutrophils Absolute Lymphocytes Absolute Monocytes Absolute Eosinophils Absolute Basophils Sodium 135.1 L Potassium 4.4 Chloride 98 Carbon Dioxide 27 Anion Gap 10 BUN 12 Creatinine 1.08 Est GFR ( Amer) > 60 Est GFR (Non-Af Amer) > 60 Glucose 178 H Calcium 8.9 Fluid Total Protein Fluid LDH Impressions: Thoracentesis Ultrasound 01/02/18 01:52 IMPRESSION: SUCCESSFUL right chest tube placement USING ultrasound GUIDANCE. Chest X-Ray 01/03/18 06:00 IMPRESSION: Persistent infiltrate or atelectasis in right mid and lower lung field with loculated right pleural effusion. Plan Time Spent: Less than 30 Minutes
[2018-01-03] MEDS: ACETAMINOPHEN 325 MG TABLET PO PRN (19:58)
[2018-01-03] MEDS ORDERED: LEVOFLOXACIN 750 MG/D5W RTU 750 MG/150 ML RTUPB IV SCH (22:00)
[2018-01-03] MEDS ORDERED: VANCOMYCIN HCL 2,000 MG in NORMAL SALINE 500 ML IV SCH (22:00)
[2018-01-04] MEDS: KETOROLAC TROMETHAMINE INJ/PF 30 MG/1 ML SDV IV PRN (02:03)
[2018-01-04] MEDS: PIPERACILLIN SODIUM/TAZOBACTAM 3.375 GM in NORMAL SALINE 100 ML IV SCH ×2 (02:04→08:07)
[2018-01-04 04:38] LABS: ABSOLUTE EOSINOPHILS # (AUTO) 0.4 10^3/uL (0.0-0.6); ABSOLUTE LYMPHOCYTES (AUTO) 0.8 10^3/uL (0.5-4.7); ABSOLUTE MONOCYTES (AUTO) 1.4 10^3/uL (0.1-1.4); ABSOLUTE NEUT (AUTO) 11.7 10^3/uL (1.7-8.2); BASOPHILS % (AUTO) 0.3 % (0-2); EOSINOPHILS % (AUTO) 3.1 % (0-6); HEMATOCRIT 31.3 % (37.9-51.0); HEMOGLOBIN 10.4 g/dL (13.5-17.0); LYMPHOCYTES % (AUTO) 5.6 % (13-45); MEAN CORPUSCULAR HEMOGLOBIN 26.6 pg (27.0-33.4); MEAN CORPUSCULAR HGB CONC 33.3 g/dL (32.0-36.0); MEAN CORPUSCULAR VOLUME 80 fl (80-97); PLATELET COUNT 250 10^3/uL (150-450); RED BLOOD COUNT 3.92 10^6/uL (4.35-5.55); RED CELL DISTRIBUTION WIDTH 13.9 % (11.5-14.0); TOTAL CELLS COUNTED % (AUTO) 100 %; WHITE BLOOD COUNT 14.5 10^3/uL (4.0-10.5)
[2018-01-04 05:07] LABS: ANION GAP 8 (5-19); BLOOD UREA NITROGEN 19 mg/dL (7-20); CALCIUM 8.2 mg/dL (8.4-10.2); CARBON DIOXIDE 21 mmol/L (22-30); CHLORIDE 103 mmol/L (98-107); GLUCOSE 123 mg/dL (75-110); POTASSIUM 3.9 mmol/L (3.6-5.0); SODIUM 132.2 mmol/L (137-145)
[2018-01-04] MEDS: HEPARIN SOD (PORCINE) 5,000 UNIT/ML 1 ML SYRINGE SUBCUT SCH (05:54)
[2018-01-04 08:29] VITALS: BP 157/85
--- NOTE | 2018-01-04 09:41 | RADIOLOGY REPORT (SQ) ---
EXAM DESCRIPTION: CHEST SINGLE VIEW COMPLETED DATE/TIME: 01/04/2018 9:31 am REASON FOR STUDY: chest tube in chest COMPARISON: 01/03/2018. NUMBER OF VIEWS: One view. TECHNIQUE: Single frontal radiographic image of the chest acquired. LIMITATIONS: None. FINDINGS: LUNGS AND PLEURA: Persistent right pleural effusion and associated airspace disease. No p neumothorax. Left lung is clear. MEDIASTINUM AND HILAR STRUCTURES: Stable heart size and mediastinal structures. HEART AND VASCULAR STRUCTURES: Stable appearance. SUPPORT DEVICES: Appropriate location without change. BONES: No acute findings. OTHER: No other significant finding. IMPRESSION: No significant change. Right pleural effusion status post thoracentesis. TECHNICAL DOCUMENTATION: JOB ID: [id number] [employer] All Rights Reserved Reading location - IP/workstation name: [email or web address]
--- NOTE | 2018-01-06 15:28 | CONSULTATION REPORT E ---
Consultation Report NAME: HALIMA DERAS : 1985 AGE: 32Y DATE: 01/02/2018 313 A TO: LINCOLN GUERRA M.D. FROM: MARIPOSA WALTER M.D. Requesting Physician HISTORY OF PRESENT ILLNESS: The patient is a 32-year-old male who came in with pleuritic chest pain, increased shortness of breath, and coughing yellow-green sputum yesterday. The patient claimed that he went to the emergency room about 2 weeks ago and was given Levaquin tablets 750-mg tablet p.o. daily for 5 days. The patient did improve after that, but a few days later started having right pleuritic chest pain and increasing cough. Condition worsened yesterday. The patient went to the emergency room. The patient had thoracentesis today showing serosanguineous pleural fluid. The pleural fluid was sent for analysis and result is pending. Cultures were sent for the pleural effusion, AFB, bacteria and fungi. The patient currently has a pigtail in place and connected to suction. PAST MEDICAL HISTORY: 1. Recent history of pneumonia. 2. History of GERD. SOCIAL HISTORY: The patient never smoked. Denies alcohol abuse, illicit drug use. FAMILY HISTORY: Just hypertension. MEDICATION ALLERGIES: None. REVIEW OF SYSTEMS: CONSTITUTIONAL: Fever, fatigue. EYES: No eye pain or blurry vision. EARS, NOSE, AND THROAT: No ear drainage. PHYSICAL EXAMINATION: HEAD AND NECK: No scalp swelling, tenderness. Neck supple. CHEST AND LUNGS: No wheezing. No rhonchi. No coarse crackles. CARDIOVASCULAR: S1/S2 distant. Normal rate. Regular rhythm. ABDOMEN: Flabby. Positive bowel sounds. Soft, nondistended, nontender. EXTREMITIES: No joint swelling. No cellulitis. GENERAL: Patient awake, alert, oriented x3. VITAL SIGNS: T Max 102.3. The heart rate is 112. The blood pressure is 147/93. Saturation is 93% on room air. EYES: No jaundice or pallor. EARS, NOSE, AND THROAT: No ear drainage. ABDOMEN: Flabby, positive bowel sounds, soft, nondistended. EXTREMITIES: No joint swelling, no cellulitis. LABORATORY: CBC done last night showed a white count of 15,300; hemoglobin is 12.8, hematocrit is 38.5. Chemistry done today showed sodium is 141, potassium is 4.2 , chloride 102, CO2 is 36, BUN 12, creatinine 0.92, glucose 112, calcium 9.6, total bilirubin is 1.1, direct bilirubin 0.3, SGOT is 20, SGPT 39, alkaline phosphatase 27. LDH is 444. Total protein 7.1 and albumin 3.9. The pleural fluid cytology showed turbid serosanguineous fluid with fluid RBC 265,025, fluid WBC is 2830, pleural fluid segmenters is 80. Fluid total protein and fluid LDH are pending. Chest CT scan done today showed a loculated pleural effusion on the right side. Review of chest x-ray 2 weeks ago, 12/19/2017, showed infiltrate, right lower lobe, and subpleural effusion. ASSESSMENT: 1. Loculated pleural effusion, right side, most likely parapneumonic. There is some indication that this is an infected pleural space. The patient may require thoracic surgery evaluation and possible pleural decortication and possible video-assisted thoracic surgery (VATS). Flushing of pigtail catheter with streptokinase and dornase and pigtail catheter placement in each loculation may be considered. Otherwise, recommend transfer to tertiary care. 2. Will continue IV Levaquin 750 mg. Will start patient on Zosyn 3.375 mg IV piggyback q. 6 hours until we identify the organisms. Will order for sputum culture and do a pleural fluid culture for AFB and bacteria and fungi and follow up with the blood culture results. DICTATING PHYSICIAN: LINCOLN GUERRA MD,GENET,[id number] [id number] PHY#: [id number] ID: [id number] JOB#: [id number] ACCT: [id number] cc:LINCOLN GUERRA M.D. > [place]
== END 2018-01-04 09:30 | disposition short-term general hospital (02) | DRG 186 ==
LOC: ER 20:36 → EH 01-02 02:02 → 3W 01-02 04:57
PROVIDERS: ADMIT Internal Medicine; ATTEND Internal Medicine
PROC: 0W9930Z Drainage of Right Pleural Cavity with Drainage Device, Percutaneous Approach (ICD-10-PCS; principal; 2018-01-02)
PROC: 5A09457 Assistance with Respiratory Ventilation, 24-96 Consecutive Hours, Continuous Positive Airway Pressure (ICD-10-PCS; 2018-01-02)
DX: J90 Pleural effusion, not elsewhere classified (principal); J18.1 Lobar pneumonia, unspecified organism; Z68.43 Body mass index [BMI] 50.0-59.9, adult; E66.01 Morbid (severe) obesity due to excess calories; K21.9 Gastro-esophageal reflux disease without esophagitis; Z79.4 Long term (current) use of insulin; Z79.899 Other long term (current) drug therapy; Z82.49 Family history of ischemic heart disease and other diseases of the circulatory system
CPT/HCPCS: 32557; 36415; 71045; 71046; 71275; 80048; 80053; 80202; 82550; 82553; 83615; 83880; 84157; 84484; 85025; 85610; 85730; 87040; 87070; 87075; 87205; 87252; 89050; 93005; 93010; 94640; 94799; 96374; 99291; J0692; J1644; J1885; J1956; J2543; J3370; J3490; J7040; J7060; J7620